=== PATIENT | female | born 1980 | race Caucasian/White ===

== ENCOUNTER → 2019-10-14 12:24 | Outpatient (CLI) | payer OTHER, SELFPAY ==
--- NOTE | 2019-10-14 | DI.CT.S_ITS ---
PROCEDURE: CT CHEST HIGH RESOLUTION INDICATIONS: Shortness of breath TECHNIQUE: Noncontrast 1.0 and 5.0 mm thick contiguous axial sections from the pulmonary apex to the posterior costophrenic angles, with 7 mm thick coronal and sagittal MIP reformats. 1 mm thick dynamic expiratory images acquired through the upper, mid, and lower lungs. 1.0 mm thick axial sections acquired from the marlyn to the posterior costophrenic angles in the prone end-inspiration position. For radiation dose reduction, the following was used: automated exposure control, adjustment of mA and/or kV according to patient size. COMPARISON: None. FINDINGS: Image quality: Excellent. Lungs: No acute consolidation. Airway thickening in keeping with nonspecific bronchitis and/or reactive airways disease. Central airways appear grossly patent. No tree-in-bud opacities. No subpleural reticular opacities, or honeycombing appearance. No definite mosaic lung attenuation is seen. No bronchiectasis Pleura: No pleural effusions or pneumothorax. Mediastinum: Heart size is normal. No pericardial effusion. Thoracic aorta and central pulmonary arteries are normal in size. Esophagus is normal in caliber. Bones and chest wall: No suspicious bony lesions. No vertebral body compression fractures. There is marked heterogeneous appearance of the liver, with geographic areas of low-attenuation. IMPRESSION: Airway thickening in keeping with nonspecific bronchitis and/or reactive airways disease. No evidence of interstitial lung disease. Markedly heterogeneous appearance of the liver, potentially representing extensive geographic fatty infiltration although technically nonspecific on this unenhanced examination. Recommend further evaluation with contrast-enhanced dedicated liver protocol MRI to exclude other more malignant possibilities. Dictated by: Hector Schultz M.D. on 10/14/2019 at 13:30 Approved by: Hector Schultz M.D. on 10/14/2019 at 13:39
== END ==
PROVIDERS: Referring Provider Internal Medicine; Visit Provider Internal Medicine
DX: R06.02 Shortness of breath (principal)
CPT/HCPCS: 71250

== ENCOUNTER → 2019-11-02 08:35 | Outpatient (CLI) | payer OTHER, SELFPAY | PROVIDERS: Referring Provider Internal Medicine; Visit Provider Internal Medicine | DX: K76.9 Liver disease, unspecified (principal); Z53.20 Procedure and treatment not carried out because of patient's decision for unspecified reasons ==

== ENCOUNTER → 2019-11-12 07:56 | Outpatient (CLI) | payer OTHER, SELFPAY ==
--- NOTE | 2019-11-12 | DI.US.S_ITS ---
PROCEDURE: US ABDOMEN COMPLETE INDICATIONS: ABNORMAL LIVER ON CT TECHNIQUE: Real-time scanning was performed of the abdominal and retroperitoneal organs, with image documentation. COMPARISON: [facility], CT, CT CHEST HIGH RESOLUTION, 10/14/2019, 12:27. FINDINGS: Liver: Liver is normal in size and demonstrates heterogeneous echotexture. There are solid hypoechoic several hepatic masses. For example, a 3.8 x 2.5 x 3.3 cm mass is seen in the posterior right hepatic lobe. A 6.8 x 3.2 x 5.0 cm mass is seen in the left hepatic lobe. Gallbladder: No gallstones. No gallbladder wall thickening, pericholecystic fluid or sonographic Holman's sign. Biliary ducts: Intrahepatic bile ducts are non-dilated. Extrahepatic bile duct caliber measures 5.1 mm. Normal is 6-7 mm or less in diameter, or 10 mm or less post-cholecystectomy. Pancreas: Visualized portions of the pancreas are sonographically normal. Spleen: Spleen is normal in size and homogeneous in echotexture. Kidneys: Kidneys are normal in size and echotexture. Right kidney measures 12.5 cm long; left kidney measures 11.6 cm long. No hydronephrosis or nephrolithiasis. No solid masses. Aorta: Visualized aorta is normal in caliber at less than 3 cm. Iliacs: Proximal common iliac arteries are normal in caliber at less than 2.5 cm. IVC: Intrahepatic inferior vena cava is patent. Miscellaneous: No free abdominal fluid. IMPRESSION: Multiple hepatic masses concerning for neoplasm. MRI may be helpful for further evaluation. Dictated by: Liayh Patino M.D. on 11/12/2019 at 9:24 Approved by: Liyah Patino M.D. on 11/12/2019 at 9:40
== END ==
PROVIDERS: PCP Internal Medicine; Referring Provider Internal Medicine; Visit Provider Internal Medicine
DX: K76.9 Liver disease, unspecified (principal)
CPT/HCPCS: 76700

== ENCOUNTER → 2020-01-01 08:16 | Outpatient (CLI) | payer OTHER, SELFPAY ==
[2020-01-01 09:47] LABS: Alanine Aminotransferase 23 IU/L (<35); Albumin 4.1 g/dL (3.5-5.0); Albumin Globulin Ratio 1.5 (1.0-2.8); Alkaline Phosphatase 292 U/L (38-126); Aspartate Aminotransferase 22 IU/L (14-36); BUN Creatinine Ratio 25.6 (6-22); Bilirubin Total 0.5 mg/dL (0.2-1.3); Bilirubin Unconjugated 0.5 mg/dL (0.0-1.1); Blood Urea Nitrogen 11 mg/dL (7-17); C-Reactive Protein Quant 2.7 mg/dL (<1.0); Calcium 9.5 mg/dL (8.4-10.2); Carbon Dioxide 25 mmol/L (22-32); Chloride 98 mmol/L (98-107); Estimated Glomerular Filt Rate > 60.0 mL/min (>60); Gamma Glutamyl Transpeptidase 128 U/L (12-43); Globulin 2.8 g/dL (1.7-4.1); Glucose 301 mg/dL (70-100); HEMOLYSIS < 15 (0-50); Potassium 3.9 mmol/L (3.4-5.1); Sodium 133 mmol/L (137-145); Total Protein 6.9 g/dL (6.3-8.2)
[2020-01-02 06:45] LABS: Alpha Fetoprotein 1.6 ng/mL (0.0-8.3)
== END ==
PROVIDERS: PCP Internal Medicine; Referring Provider Physician Assistant; Visit Provider Physician Assistant
DX: D13.4 Benign neoplasm of liver (principal)
CPT/HCPCS: 36415; 80053; 80076; 82105; 82172; 82247; 82465; 82977; 86140

== ENCOUNTER → 2020-03-30 10:21 | Outpatient (CLI) | payer OTHER, SELFPAY ==
[2020-03-30 11:37] LABS: Add Manual Diff / Slide Review NO; Basophils Absolute Auto 0 /uL (0-100); Basophils Percent Auto 0.5 % (0-2); Eosinophils Absolute Auto 100 /uL (0-450); Eosinophils Percent Auto 0.6 % (2-4); Hematocrit 39.8 % (36-46); Hemoglobin 12.7 g/dL (12.0-16.0); Lymphocytes Absolute Auto 2000 /uL (1100-4500); Lymphocytes Percent Auto 22.9 % (25-40); Mean Corpuscular Hemoglobin 22.7 PG (26-34); Monocytes Absolute Auto 600 /uL (0-900); Monocytes Percent Auto 6.2 % (3-14); Neutrophils Absolute Auto 6200 /uL (1500-7000); Neutrophils Percent Auto 69.8 % (50-75); Platelet Count 245 X10^3/uL (150-400); Red Blood Cell Count 5.61 X10^6/uL (4.0-5.2); Red Cell Distribution Width 18.4 % (11.6-14.8); White Blood Cell Count 8.9 X10^3/uL (4.5-11.0)
[2020-03-30 11:44] LABS: Hemoglobin A1C% w Est Avg Glu 10.8 % (4.0-6.0)
[2020-03-30 11:52] LABS: Alanine Aminotransferase 28 IU/L (<35); Albumin 4.5 g/dL (3.5-5.0); Albumin Globulin Ratio 1.4 (1.0-2.8); Alkaline Phosphatase 290 U/L (38-126); Aspartate Aminotransferase 28 IU/L (14-36); BUN Creatinine Ratio 20.8 (6-22); Bilirubin Total 0.6 mg/dL (0.2-1.3); Blood Urea Nitrogen 11 mg/dL (7-17); Calcium 9.7 mg/dL (8.4-10.2); Carbon Dioxide 26 mmol/L (22-32); Chloride 99 mmol/L (98-107); Cholesterol 187 mg/dL (140-199); Estimated Glomerular Filt Rate > 60.0 mL/min (>60); Globulin 3.2 g/dL (1.7-4.1); Glucose 341 mg/dL (70-100); HDL Cholesterol 52 mg/dL (40-60); HEMOLYSIS < 15 (0-50); LDL Cholesterol Calculated 99 mg/dL (<100); Potassium 4.4 mmol/L (3.4-5.1); Sodium 137 mmol/L (137-145); Total Protein 7.7 g/dL (6.3-8.2); Triglycerides 179 mg/dL (35-150)
[2020-03-30 13:58] LABS: Erythrocyte Sedimentation Rate 14 MM/HR (0-20)
[2020-03-31 18:25] LABS: HEMOLYSIS < 15 (0-50); Iron 38 ug/dL (37-170)
[2020-03-31 18:35] LABS: Percent Iron Saturation 8 % (15-50); Total Iron Binding Capacity 471 ug/dL (265-497); Transferrin 398 mg/dL (206-381)
[2020-03-31 18:53] LABS: Reticulocyte Count, Percent 1.2 % (1.06-2.63)
[2020-03-31 19:01] LABS: Ferritin 12 ng/mL (6-137)
== END ==
PROVIDERS: PCP Student in an Organized Health Care Education/Training Program; Referring Provider Student in an Organized Health Care Education/Training Program; Visit Provider Student in an Organized Health Care Education/Training Program
DX: D13.4 Benign neoplasm of liver (principal); Z13.220 Encounter for screening for lipoid disorders; R73.9 Hyperglycemia, unspecified; D50.9 Iron deficiency anemia, unspecified
CPT/HCPCS: 36415; 80053; 80061; 82728; 83036; 83540; 83550; 85025; 85045; 85651; 86140

== ENCOUNTER → 2020-07-04 07:51 | Outpatient (CLI) | payer OTHER, SELFPAY ==
[2020-07-04 09:37] LABS: Hematocrit 40.3 % (36-46); Hemoglobin 13.2 g/dL (12.0-16.0); Mean Corpuscular HGB Conc 32.9 % (30-36); Mean Corpuscular Hemoglobin 24.8 PG (26-34); Mean Corpuscular Volume 75.2 fL (80-100); Platelet Count 222 X10^3/uL (150-400); Red Blood Cell Count 5.35 X10^6/uL (4.0-5.2); Red Cell Distribution Width 16.9 % (11.6-14.8)
[2020-07-04 09:38] LABS: HEMOLYSIS < 15 (0-50); Iron 29 ug/dL (37-170)
[2020-07-04 09:39] LABS: Creatinine Urine Random 147.9 mg/dL
[2020-07-04 09:43] LABS: Alanine Aminotransferase 23 IU/L (<35); Albumin 4.3 g/dL (3.5-5.0); Albumin Globulin Ratio 1.4 (1.0-2.8); Alkaline Phosphatase 239 U/L (38-126); Aspartate Aminotransferase 21 IU/L (14-36); BUN Creatinine Ratio 36.6 (6-22); Bilirubin Total 0.5 mg/dL (0.2-1.3); Bilirubin Unconjugated 0.4 mg/dL (0.0-1.1); Blood Urea Nitrogen 15 mg/dL (7-17); C-Reactive Protein Quant 2.1 mg/dL (<1.0); Cholesterol 161 mg/dL (140-199); Estimated Glomerular Filt Rate > 60.0 mL/min (>60); HDL Cholesterol 53 mg/dL (40-60); HEMOLYSIS < 15 (0-50); LDL Cholesterol Calculated 78 mg/dL (<100); Total Protein 7.3 g/dL (6.3-8.2); Triglycerides 149 mg/dL (35-150)
[2020-07-04 09:44] LABS: Microalbumi Creatinin Ratio Ur 8.1 ug/mg CR (<30); Microalbumin Urine Random 1.2 mg/dL (0-1.6)
[2020-07-04 09:49] LABS: Percent Iron Saturation 7 % (15-50); Total Iron Binding Capacity 429 ug/dL (265-497); Transferrin 347 mg/dL (206-381)
== END ==
PROVIDERS: PCP Student in an Organized Health Care Education/Training Program; Referring Provider Student in an Organized Health Care Education/Training Program; Visit Provider Student in an Organized Health Care Education/Training Program
DX: D13.4 Benign neoplasm of liver (principal); D50.9 Iron deficiency anemia, unspecified; E11.9 Type 2 diabetes mellitus without complications; Z79.899 Other long term (current) drug therapy
CPT/HCPCS: 36415; 80061; 80076; 82043; 82565; 82570; 83036; 83540; 83550; 84520; 85027; 86140